=== PATIENT | female | born 1945 | race Caucasian/White ===

== ENCOUNTER 2019-11-17 12:23 | Outpatient (CLI) | payer MEDICARE, SELFPAY ==
--- NOTE | ~2019-11-17 | MM_ITS ---
EXAMINATION: MM screening aleyda BI w tasha HISTORY: Screening TECHNIQUE: Craniocaudal and mediolateral oblique 3-D tomosynthesis images were obtained and synthetic 2-D images were generated. CAD analysis was submitted and interpreted. COMPARISON: Comparison to multiple prior studies sequentially, with oldest reviewed study dated 08/04. BREAST PARENCHYMAL COMPOSITION: There are scattered areas of fibroglandular density. FINDINGS: There is no evidence of suspicious mass, calcification, or architectural distortion to sugg est malignancy in either breast. There has been no suspicious interval change. IMPRESSION: 1. No mammographic evidence of malignancy. 2. Recommend routine screening mammography in one year. BI-RADS Category 1: Negative Reviewed, dictated and finalized at location A.
== END 2019-11-17 12:24 | disposition home or self-care (01) ==
LOC: CHSIMG 12:27
DX: Z12.31 Encounter for screening mammogram for malignant neoplasm of breast (principal)
CPT/HCPCS: 77063; 77067

== ENCOUNTER 2021-01-10 12:15 | Outpatient (CLI) | payer MEDICARE, SELFPAY ==
--- NOTE | ~2021-01-10 | MM_ITS ---
EXAMINATION: MM screening aleyda BI w tasha HISTORY: Screening mammogram TECHNIQUE: Craniocaudal and mediolateral oblique 3-D tomosynthesis images were obtained and synthetic 2-D images were generated. CAD analysis was submitted and interpreted. COMPARISON: 11/17/2019, 10/31/2018, 10/28/2017 bilateral digital screening mammogram examinations BREAST PARENCHYMAL COMPOSITION: The breasts are almost entirely fatty. FINDINGS: There is no evidence of suspicious mass, calcification, or architectural distortion to sugg est malignancy in either breast. There has been no suspicious interval change. IMPRESSION: 1. No mammographic evidence of malignancy. 2. Recommend routine screening mammography in one year. BI-RADS Category 1: Negative Reviewed, dictated and finalized at location A.
== END 2021-01-10 12:16 | disposition home or self-care (01) ==
LOC: CHSIMG 12:18
PROVIDERS: PCP Family Medicine; Visit Provider Nurse Practitioner
DX: Z12.31 Encounter for screening mammogram for malignant neoplasm of breast (principal)
CPT/HCPCS: 77063; 77067

== ENCOUNTER 2021-02-02 17:01 | Emergency (ER) | payer MEDICARE, SELFPAY ==
--- NOTE | ~2021-02-02 | CT_ITS ---
EXAMINATION: CT brain wo con DATE: 02/02/2021 19:22 INDICATION: Sudden onset nausea, vomiting and dizziness TECHNIQUE: Computed tomography (CT) of the head was performed without intravenous contrast. Sagittal and coronal reconstructions were performed. The mA was adjusted according to patient size. Iterative reconstruction technique was employed. The dose-length product was 681.00 mGy-cm. COMPARISON: None FINDINGS: No acute intracranial hemorrhage, acute infarction or abnormal extra axial fluid collection. Ventricl es are normal and symmetric. No mass/mass effect. Changes of left intraocular lens replacement. The o rbits and mastoid air cells are normal. Mild mucosal thickening in the bilateral ethmoid sinuses. Int racranial calcified cerebral atherosclerosis is noted at the carotid siphons. IMPRESSION: 1. Normal brain. No acute intracranial process. Reviewed, dictated and finalized at location A. ICITY EXPERT
[2021-02-02 17:05] VITALS: BP 174/76; PULSE 97; RESP 20; TEMP 36.4; O2SAT 97
--- NOTE | 2021-02-02 17:29 | ECG_ITS ---
Measurements Intervals [place] Rate: 76 P: 40 [place]: 188 QRS: 30 QRSD: 101 T: 43 QT: 384 QTc: 432 Interpretive Statements SINUS RHYTHM BASELINE ARTIFACT- I, II, III, AVR, AVL, AVF NORMAL ECG Electronically Signed On 02-03-2021 7:32:[address] [address] Newman D.O.
[2021-02-02 17:47] LABS: Basophils Absolute Auto 0.03 K/mm3 (0.00-0.10); Basophils Percent Auto 0.5 % (0.0-1.0); Eosinophils Absolute Auto 0.04 K/mm3 (0.02-0.50); Eosinophils Percent Auto 0.7 % (1.0-6.0); Hematocrit 37.3 % (35.0-42.0); Hemoglobin 12.1 g/dL (11.7-13.8); Immature Granulocyte Absolute 0.01 K/mm3 (0.00-0.00); Immature Granulocyte Percent A 0.2 % (0.0-0.0); Lymphocytes Absolute Auto 0.94 K/mm3 (1.10-4.50); Lymphocytes Percent Auto 17.2 % (18.0-42.0); Mean Corpuscular HGB Conc 32.4 g/dL (32.0-36.0); Mean Corpuscular Hemoglobin 29.1 pg (27.0-31.0); Mean Corpuscular Volume 89.7 fL (78.0-102.0); Mean Platelet Volume 10.4 fl (9.2-11.8); Monocytes Absolute Auto 0.47 K/mm3 (0.10-0.90); Monocytes Percent Auto 8.6 % (2.0-11.0); Neutrophils Percent Auto 72.8 % (50.0-70.0); Platelet Count Result 236 K/mm3 (150-420); Red Blood Count 4.16 M/mm3 (4.20-5.40); Red Cell Distribution Width 14.5 % (11.6-14.4); White Blood Count 5.5 K/mm3 (4.8-10.8)
[2021-02-02 18:05] LABS: Alanine Aminotransferase 18 U/L (14-59); Albumin Level 3.1 g/dL (3.4-5.0); Alkaline Phosphatase 119 U/L (46-116); Anion Gap 7 mmol/L (8-16); Aspartate Amino Transferase < 10 U/L (15-37); Bilirubin,Total 0.4 mg/dL (0.00-1.00); Blood Urea Nitrogen 22 mg/dL (7-18); Calcium 8.8 mg/dL (8.5-10.1); Carbon Dioxide 28 mmol/L (21-32); Chloride 105 mmol/L (98-108); Estimated CRCL calculation 41 ml/min; Estimated Glomerular Filt Rate 43; Glucose 140 mg/dL (70-99); Osmolality Calculated 295 mOsm/kg (285-295); Potassium 4.5 mmol/L (3.5-5.1); Sodium 140 mmol/L (136-145); Total Protein 7.3 g/dL (6.4-8.2)
[2021-02-02] MEDS: MECLIZINE HCL 25 MG TABLET PO (18:19)
[2021-02-02] MEDS: SODIUM CHLORIDE 0.9% IV 500 ML 999 ML IV CONT (18:20)
[2021-02-02] MEDS: ONDANSETRON INJ 4 MG/2 ML VIAL IV PUSH (18:20)
[2021-02-02 18:23] LABS: SARS-CoV-2 RNA PCR Negative (Negative)
--- NOTE | 2021-02-02 18:27 | PC.NURSE ---
4495---pt unable to lie flat in ct scanner due to extreme dizziness. returned to exam room for medications.
[2021-02-02 18:28] VITALS: BP 161/74; PULSE 82; RESP 20; TEMP 36.7; O2SAT 99
--- NOTE | 2021-02-02 19:34 | ED.NAVMDI ---
HPI - Nausea/Vomiting/Diarrhea General Chief complaint: Nausea/Vomiting/Diarrhea Stated complaint: DIZZY Source: patient and family Mode of arrival: wheelchair History of Present Illness HPI Narrative: this is a 75-year-old female with history of diabetes and hypertension presents with nausea vomiting and vertigo started earlier today at around noon currently watery diarrhea with no headache no blurry vision no chest pain no shortness of breath no fever or chills. MD elicited complaint: nausea and vomiting Onset (ago): hour(s) Description of vomiting: watery Description of diarrhea: watery Associated nausea: Yes Associated abdominal pain: No Related Data Home Medications Medication Instructions Recorded Confirmed amlodipine 15 mg PO DAILY 02/02/21 02/02/21 aspirin [Adult Low Dose Aspirin] 81 mg PO DAILY 02/02/21 02/02/21 carvedilol 12.5 mg PO BID 02/02/21 02/02/21 glipizide 5 mg PO DAILY 02/02/21 02/02/21 hydrochlorothiazide 25 mg PO DAILY 02/02/21 02/02/21 losartan 100 mg PO DAILY 02/02/21 02/02/21 Allergies Allergy/AdvReac Type Severity Reaction Status Date / Time No Known Allergies Allergy Verified 02/02/21 17:22 Review of Systems Review of Systems: All systems reviewed & are unremarkable except as noted in HPI and below PMFSH Past Medical History Medical History Diabetes mellitus Exam Const: General: no acute distress and alert Orientation/consciousness: patient oriented x3 HENMT: Head: normal to inspection Eyes: Pupils: Equal, round and reactive pupils present EOM: EOMs intact bilaterally Direct Ophthalmoscopy: no photophobia Neck: Neck: normal visual inspection, no lymphadenopathy and no meningeal signs Chest: Chest palpation & inspection: normal inspection of the chest Resp: Effort & Inspection: normal respiratory effort Auscultation: clear to auscultation bilaterally Cardio: Rate: regular rate Rhythm: regular rhythm GI: GI Palp: Yes Soft to palpation Percussion: Yes normal to percussion : General: Yes no CVA tenderness Urinary Catheter: Urinary Catheter: patent and draining Back/Spine/Pelvis: Back: no CVA tenderness Skin: General skin exam: normal color Rashes: no rashes Neuro: General: patient oriented x3, moves all extremities, no meningeal signs and no focal motor deficits Extrem: General: normal to inspection Psych: Mental Status: mental status grossly normal Course Course Emergency Course: lab and CT scan reviewed with patient patient received meclizine and Zofran and currently is comfortable with dizziness and vertigo has improved as well as her nausea and vomiting. Vital Signs Vital signs: Vital Signs Temperature 36.4 C 02/02/21 17:05 Pulse Rate 97 02/02/21 17:05 Respiratory Rate 20 02/02/21 17:05 Blood Pressure 174/76 H 02/02/21 17:05 Pulse Oximetry 97 02/02/21 17:05 Temperature 36.7 C 02/02/21 18:28 Pulse Rate 82 02/02/21 18:28 Respiratory Rate 20 02/02/21 18:28 Blood Pressure 161/74 H 02/02/21 18:28 Pulse Oximetry 99 02/02/21 18:28 MDM - Nausea/Vomiting/Diarrhea Lab Data Result diagrams: 02/02/21 17:43 02/02/21 17:43 Labs: Lab Results 02/02/21 02/02/21 02/02/21 Range/Units 17:43 17:43 17:43 WBC 5.5 (4.8-10.8) K/mm3 RBC 4.16 L (4.20-5.40) M/mm3 Hgb 12.1 (11.7-13.8) g/dL Hct 37.3 (35.0-42.0) % MCV 89.7 (78.0-102.0) fL MCH 29.1 (27.0-31.0) pg MCHC 32.4 (32.0-36.0) g/dL RDW 14.5 H (11.6-14.4) % Plt Count 236 (150-420) K/mm3 MPV 10.4 (9.2-11.8) fl Immature Gran % (Auto) 0.2 H (0.0-0.0) % Neut % (Auto) 72.8 H (50.0-70.0) % Lymph % (Auto) 17.2 L (18.0-42.0) % [place] % (Auto) 8.6 (2.0-11.0) % Eos % (Auto) 0.7 L (1.0-6.0) % Baso % (Auto) 0.5 (0.0-1.0) % Lymph # (Auto) 0.94 L (1.10-4.50) K/mm3 [place] # (Auto) 0.47 (0.10-0.90) K/mm3 Eos # (Aut
--- NOTE | 2021-02-02 19:38 | PC.NURSE ---
pT RETURNED FROM ct AT THIS TIME. pT REEVALED BY ermd. ermd AT THE BEDSIDE DISCUSSING ORDERS FOR d/c WITH pT. urine sample reqused from Pt. Pt. hystrionic and difficult to communicate with, denied ability at this time to provide sample. ERMD aware. Urine sample dismissed by ERMD. D/C orders continued.
[2021-02-02 19:46] VITALS: BP 162/71; PULSE 81; RESP 20; TEMP 36.7; O2SAT 99
--- NOTE | 2021-02-02 20:06 | PC.NURSE ---
#20 Gauge IV Lt F/A removed intact 0 bleeding and preasure dresing placed.
== END 2021-02-02 20:11 | disposition home or self-care (01) ==
PROVIDERS: Emergency Provider Emergency Medicine
DX: B34.9 Viral infection, unspecified (principal); R11.2 Nausea with vomiting, unspecified; E11.9 Type 2 diabetes mellitus without complications; Z20.822 Contact with and (suspected) exposure to COVID-19
CPT/HCPCS: 36415; 70450; 80053; 85025; 93005; 96361; 96374; 99283; 99284; A9270; C9803; J2405; J7040; U0003; U0005

== ENCOUNTER 2022-01-23 11:43 | Outpatient (CLI) | payer MEDICARE, SELFPAY ==
--- NOTE | ~2022-01-23 | MM_ITS ---
EXAMINATION: MM screening aleyda BI w tasha HISTORY: Screening mammogram TECHNIQUE: Craniocaudal and mediolateral oblique 3-D tomosynthesis images were obtained and synthetic 2-D images were generated. CAD analysis was submitted and interpreted. COMPARISON: 01/10/2021, 11/17/2019, 10/31/2018 bilateral screening mammogram examinations BREAST PARENCHYMAL COMPOSITION: The breasts are almost entirely fatty. FINDINGS: There is no evidence of suspicious mass, calcification, or architectural distortion to sugg est malignancy in either breast. There has been no suspicious interval change. IMPRESSION: 1. No mammographic evidence of malignancy. 2. Recommend routine screening mammography in one year. BI-RADS Category 1: Negative Reviewed, dictated and finalized at location A. 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
== END 2022-01-23 11:44 | disposition home or self-care (01) ==
LOC: CHSIMG 11:45
PROVIDERS: PCP Family Medicine; Visit Provider Family Medicine
DX: Z12.31 Encounter for screening mammogram for malignant neoplasm of breast (principal)
CPT/HCPCS: 77063; 77067

== ENCOUNTER 2024-12-18 16:14 | Outpatient (CLI) | payer MEDICARE, SELFPAY ==
--- NOTE | ~2024-12-18 | XR_ITS ---
XR lumbar spine 2-3V Indication: right-sided low back pain without sciata Comparison: None Findings: Moderate loss of vertebral height throughout. No fracture identified. Grade 1 anterolisthesis of L4 on L5. Moderate loss of disc height throughout. Soft tissues unremarkable Impression: No acute abnormality. Reviewed, dictated and finalized at location P. Impression: No acute abnormality.
--- NOTE | ~2024-12-18 | XR_ITS ---
EXAMINATION: XR hip RT min 2V, 12/18/2024 16:30 CDT HISTORY: right-sided low back pain without sciata COMPARISON: No comparisons available. Findings: No acute fracture or malalignment. No significant degenerative changes. Soft tissues unremarkable. Impression: No acute fracture or malalignment. Reviewed, dictated and finalized at location P. Impression: No acute fracture or malalignment.
--- OUTSIDE RECORDS SUMMARY | 2024-12-18 16:21 | XMS_ITS | Clinical Summary ---
Author Organization [facility] Address [address] [place] [address] Care Team Providers Care Communications Technician Name Role Phone Benson Downs Candace HOWARD Primary Care Provider [phone] Allergies Active Allergy Reactions Criticality Noted Date Comments Glimepiride Itching Low 02/17/2020 Reaction: Itching, Shellfish Allergy Unknown 02/17/2020 Medications losartan 100 MG tablet Take 1 tablet (100 mg total) by mouth daily. Active carvedilol 12.5 MG tablet Take 1 tablet (12.5 mg total) by mouth 2 (two) times daily. Active amLODIPine 10 MG tablet Take 0.5 tablets (5 mg total) by mouth daily. Active hydroCHLOROthiazide 25 MG tablet Take 1 tablet (25 mg total) by mouth every morning. Active aspirin 81 MG chewable tablet Chew 1 tablet (81 mg total) by mouth daily. Active dulaglutide (TRULICITY) 0.75 MG/0.5ML injection Inject 0.75 mg into the skin once a week. Active ondansetron (ZOFRAN-ODT) 4 MG disintegrating tabletIndications:C OVID-19 virus infection Take 1 tablet (4 mg total) by mouth every 8 (eight) hours as needed for Nausea. 12 tablet Active glipiZIDE XL 10 MG 24 hr tablet Take 1 tablet (10 mg total) by mouth daily with breakfast. Do not break or crush tablet Active Active Problems Problem Noted Date Diagnosed Date MAR (acute kidney injury) 09/19/2023 Elevated liver enzymes 07/20/2020 Acute kidney injury 02/19/2020 COVID-19 02/17/2020 Obesity (BMI 30-39.9) 09/16/2016 Benign essential hypertension 08/01/2013 Overview (02/17/2020): Benign essential HTN Controlled type [address] hyperglycemia ([facility]) 08/01/2013 Overview (02/17/2020): Diabetes mellitus DM2 (diabetes mellitus, type 2) ([facility] ) Hypertension Resolved Problems Problem Noted Date Diagnosed Date Resolved Date Epigastric pain 07/20/2020 07/21/2020 Chest pain 07/19/2020 07/21/2020 Bacteremia due to Gram-negative bacteria 05/05/2020 05/09/2020 Respiratory failure with hyp oxia ([facility]) 02/19/2020 02/19/2020 Family History Medical History Relation Comments Heart Disease Father Relation Status Comments Father Alive Mother old age Social History Tobacco Use Types Packs/Day Years Used Date Smoking Tobacco: Former Cigarettes 0.3 37 0 05/04/1965 - 05/04/2002 Smokeless Tobacco: Never Alcohol Use Standard Drinks/Week Comments Not Currently 0 (1 standard drink = 0.6 oz pur e alcohol) [facility] Utilities Answer Date Recorded In the past 12 months has e electric, gas, oil, or water [employer] threatened to shut off services in your home? No 09/19/2023 Humiliation, Afraid, Rape, and Kick questionnair e Answer Date Recorded Within the last year, have y ou been afraid of your partner or ex-partner? No 09/19/2023 Within the last year, have y ou been humiliated or emotionally abused in other ways by your partner or ex-partner? No Within the last year, have y ou been kicked, hit, slapped, or otherwise physically hurt by your partner or ex-partner? No 09/19/2023 Within the last year, have y ou been raped or forced to have any kind of sexual activity by your partner or ex-partner? No 09/19/2023 Overall Financial Resource Strain (CARDIA) Answe r Date Recorded How hard is it for you to pa y for the very basics like food, housing, medical care, and heating? Not hard at all 09/19/2023 [facility] - Occupational Stress Questionnaire Answer Date Recorded Do you feel stress - tense, restless, nervous, or anxious, or unable to sleep at night because your mind is troubled all the time - these days? Not at all 02/17/2020 Exercise Vital Sign Answer Date Recorde d On average, how many days pe r week do you engage in moderate to strenuous exercise (like a brisk walk)? Patient declined On average, how many minutes do you engage in exercise at this level? Patient declined 02/17/2020 Hunger Vital Sign Answer Date Recorded Within the past 12 months, y ou worried that your food would run out before you got the money to buy more. Never true 09/19/19 24 Within the past 12 months, t he food you bought just didn't last and you didn't have money to get more. Never true 09/19/2023 PRAPARE - Transportation Answer Date Re corded In the past 12 months, has l ack of transportation kept you from medical appointments or from getting medications? No 06/2023 In the past 12 months, has l ack of transportation kept you from meetings, work, or from getting things needed for daily living? No 09/19/2023 Housing Stability Vital Sign Answer Inocente e Recorded In the last 12 months, was t here a time when you were not able to pay the mortgage or rent on time? No 09/19/2023 In the past 12 months, how m any times have you moved where you were living? 1 09/19/2023 At any time in the past 12 m [facility], were you homeless or living in a chcf (including now)? No 09/19/2023 Comments No Sex and Gender Information Value Date Recorded Sex Assigned at Not on file Legal Sex Female 2:30 PM CDT Gender Identity Not on file Sexual Orientation Not on file Last Filed Vital Signs Vital Sign Reading Time Taken Comments Blood Pressure 122/51 09/22/2023 6:20 AM CDT Pulse 73 09/22/2023 6:20 AM CDT Temperature 36.3 C (97.3 F) 09/22/2023 6:20 AM CDT Respiratory Rate 18 09/22/2023 6:20 AM CDT Oxygen Saturation 94% 09/22/2023 6:20 AM CDT Inhaled Oxygen Concentration - - Weight 103.3 kg (227 lb 12.8 oz) 2023 10:16 PM CDT Height 165.1 cm (5' 5) 09/19/2023 6:45 PM CDT Body Mass Index 37.91 09/19/2023 6:45 PM CDT Plan of Treatment Health Maintenance Due Date Last Done Comments Kidney Health Evaluation 1945 Diabetes: Retinopathy Eye Exam 06/08/1965 Pneumococcal Vaccine: 50+ Years (1 of 2 - PCV) 06/08/1966 Zoster Vaccines (1 of 2) 06/08/1997 DTaP, Tdap and Td Vaccines ( 1 - Tdap) 08/16/2005 08/15/2005 Annual Medicare Wellness Visit 06/08/2012 Hemoglobin A1C 11/03/2020 05/06/2020, 02/19/2020 Lipid Panel 07/21/2021 07/21/2020 RSV Immunization or 60+ Years (1 - 1-dose 75+ series) 06/08/2022 COVID-19 Vaccine ( - 2023-2 5 season) 2024 Hepatitis C Completed 07/19/2020 Dexa Scan (General) Completed 01/31/2023 Meningococcal B Vaccine Aged Out No l onger eligible based on patient's age to complete this topic Meningococcal Vaccine Aged Out No dayan butch eligible based on patient's age to complete this topic RSV Immunizations Under 20 Months Aged Out No longer eligible b ased on patient's age to complete this topic Procedures Procedure Name Priority Date/Time Associated Diagnosis Comments BONE DENSITY/DEXA Routine 01/31/2023 9:5 5 AM FORMATION TESTING OPERATOR Post-menopausal LIPID PANEL Routine 07/21/2020 6:38 AM CDT HEPATITIS PANEL,ACUTE STAT 07/19/2020 8:12 PM CDT HEMOGLOBIN, GLYCOSYLATED Routine 05/06/2020 5:20 AM FORMATION TESTING OPERATOR from Last 3 Months or Most Recently Relevant to Health Maintenance Results * BONE DENSITY/DEXA (01/31/2023 9:55 AM FORMATION TESTING OPERATOR) Anatomical Region Laterality Modality Bone Bone Density 01/31/2023 10:1 0 AM FORMATION TESTING OPERATOR Impressions 01/31/2023 10:19 AM FORMATION TESTING OPERATOR Impression: 1. Within normal limits in the lumbar spine. 2. Consistent with osteopenia in both hips. Ordered By: BENSON DOWNS Interpreted By: Lucas Barcenas MD, 01/31/2023 10:10 AM Narrative 01/31/2023 10:19 AM FORMATION TESTING OPERATOR Examination: DEXA Bone densitometry Clinical history: Postmenopausal. Osteoporosis screening. Comparison: None. Technique: DEXA bone mineral density evaluation was performed in the AP projection over the lumbar spine and over both hips in the AP projection utilizing standard imaging techniques. Assessment: The BMD measured at the AP spine L1-L4 is 1.023 g/cm2 with a T-score of -0.2 and a Z-score of 2.2. Bone density is up to 10% below young normal. This patient is considered normal according to the World Health Organization (WHO) criteria. Fracture risk is low. The BMD measured at the femoral neck left is 0.639 g/cm2 with a T-score of -1.9 and a Z-score of 0.2. The patient is considered osteopenic according to World Health Organization (WHO) criteria. Bone density is between 10 and 25% below young normal. Fracture risk is moderate. Treatment is advised. The BMD measured at the femoral neck right is 0.729 g/cm2 with a T-score of -1.1 and a Z-score of 1.0. The patient is considered osteopenic according to World Health Organization (WHO) criteria. Bone density is between 10 and 25% below young normal. Fracture risk is moderate. Treatment is advised. FRAX 10-year fracture risk: Major Osteoporotic Fracture: 12%. Hip Fracture: 2.6%. Recommendations: All patients should ensure an adequate intake of dietary calcium and vitamin D. The NOF recommend adults under the age of 50 need 1000 mg of calcium and 400-800 IU of vitamin D daily. Effective therapy for the prevention and treatment of osteoporosis include biphosphonates. Follow-up: People with diagnosed cases of osteoporosis or at high risk for fracture should have regular bone mineral density test. For patients eligible for Medicare, routine testing is allowed once every 2 years. Testing frequency can be increased to one year for patients who have rapidly progressing disease, those who are receiving or discontinuing medical therapy to restore bone mass, or have additional risk factors. Based on these results, a followup exam is recommended in two years. Procedure Note Lucas Barcenas MD - 01/31/2023 Examination: DEXA Bone densitometry Clinical history: Postmenopausal. Osteoporosis screening. Comparison: None. Technique: DEXA bone mineral density evaluation was performed in the APprojection over the lumbar spine and over both hips in the AP projectionutilizing standard imaging techniques. Assessment: The BMD measured at the AP spine L1-L4 is 1.023 g/cm2 with a T-score of-0.2 and a Z-score of 2.2. Bone density is up to 10% below youngnormal. This patient is considered normal according to the World HealthOrganization (WHO) criteria. Fracture risk is low. The BMD measured at the femoral neck left is 0.639 g/cm2 with a T-score of-1.9 and a Z-score of 0.2. The patient is considered osteopenicaccording to World Health Organization (WHO) criteria. Bone density isbetween 10 and 25% below young normal. Fracture risk is moderate.Treatment is advised. The BMD measured at the femoral neck right is 0.729 g/cm2 with a T-scoreof -1.1 and a Z-score of 1.0. The patient is considered osteopenicaccording to World Health Organization (WHO) criteria. Bone density isbetween 10 and 25% below young normal. Fracture risk is moderate.Treatment is advised. FRAX 10-year fracture risk: Major Osteoporotic Fracture: 12%. Hip Fracture: 2.6%. Recommendations: All patients should ensure an adequate intake of dietary calcium andvitamin D. The NOF recommend adults under the age of 50 need 1000 mg ofcalcium and 400-800 IU of vitamin D daily. Effective therapy for theprevention and treatment of osteoporosis include biphosphonates. Follow-up: People with diagnosed cases of osteoporosis or at high risk for fractureshould have regular bone mineral density test. [facility], routine testing is allowed once every 2 years. Testing frequencycan be increased to one year for patients who have rapidly progressingdisease, those who are receiving or discontinuing medical therapy torestore bone mass, or have additional risk factors. Based on these results, a followup exam is recommended in two years. Impression: 1. Within normal limits in the lumbar spine. 2. Consistent with osteopenia in both hips. Ordered By: BENSON DOWNS Interpreted By: Lucas Barcenas MD, 01/31/2023 10:10 AM us Benson Downs APNP DEXA Final Resu lt * (ABNORMAL) LIPID PANEL (07/21/2020 6:38 AM CDT) CHOLESTEROL 184 <200 MG/DL 07/21/2020 8:45 AM CDT [facility] Comment: THE NATIONAL LIPID ASSOCIATION AND THE NATIONAL CHOLESTEROL EDUCATION PROGRAM (NCEP) HAVE SET THE FOLLOWING GUIDELINES FOR TOTAL CHOLESTEROL IN ADULTS AGES 18 AND UP. DESIRABLE: <200 BORDERLINE HIGH: 200-239 HIGH: > OR = 240 TRIGLYCERIDES 61 <150 MG/DL 07/21/2020 8:45 AM CDT [facility] Comment: THE NATIONAL LIPID ASSOCIATION AND THE NATIONAL CHOLESTEROL EDUCATION PROGAM (NCEP) HAVE SET THE FOLLOWING GUIDELINES FOR TRIGLYCERIDES IN ADULTS AGES 18 AND UP. NORMAL: <150 BORDERLINE HIGH: 150 TO 199 HIGH: 200 TO 499 VERY HIGH: >499 HDL 62 >49 MG/DL 07/21/2020 8:45 AM CDT [facility] Comment: THE NATIONAL LIPID ASSOCIATION AND THE NATIONAL CHOLESTEROL EDUCATION PROGAM (NCEP) HAVE SET THE FOLLOWING GUIDELINES FOR HDL CHOLESTEROL IN ADULTS AGES 18 AND UP. MALES: >39 FEMALES: >49 LDL (CALCULATED) 110(H) <100 MG/DL 07/22/19 8:45 AM CDT [facility] Comment: THE NATIONAL LIPID ASSOCIATION AND THE NATIONAL CHOLESTEROL EDUCATION PROGAM (NCEP) HAVE SET THE FOLLOWING GUIDELINES FOR LDL CHOLESTEROL IN ADULTS AGES 18 AND UP. DESIRABLE: <100 ABOVE DESIRABLE: 100 TO 129 BORDERLINE HIGH: 130 TO 159 HIGH: 160 TO 189 VERY HIGH: >189 VLDL CALCULATION 12 MG/DL 07/22/19 8:45 AM CDT [facility] Comment:REFERENCE RANGE NOT ESTABLISHED CHOL/HDL RATIO 3.0 07/21/2020 8:45 AM CDT [facility] Comment:REFERENCE RANGE NOT ESTABLISHED LDL/HDL 1.8 07/21/2020 8:45 AM CDT [facility] Comment:REFERENCE RANGE NOT ESTABLISHED NON HDL CHOLESTEROL 122 MG/DL 07/21/2020 8:45 AM CDT [facility] Comment:REFERENCE RANGE NOT ESTABLISHED 07/21/2020 6:38 AM CDT Mariama Jones [facility] Final Res ult [facility] [address] [place] [address], * HEPATITIS PANEL,ACUTE (07/19/2020 8:12 PM CDT) HEPATITIS B SURFACE AG NON-REACT SHANKAR NON-REACT SHANKAR 07/20/2020 8:04 PM CDT [facility] Comment:HBsAg NOT DETECTED. HEP B CORE IGM NON-REACT SHANKAR NON-REACT SHANKAR 07/20/2020 8:04 PM CDT [facility] Comment: IgM ANTI HBc NOT DETECTED. DOES NOT EXCLUDE THE POSSIBILITY OF EXPOSURE TO OR INFECTION WITH HBV. NO RETEST REQUIRED. HIGH DOSES OF BIOTIN MAY INTERFERE WITH THIS TEST RESULT. CORRELATION TO CLINICAL HISTORY AND PRESENTATION RECOMMENDED. HAV IGM NON-REACT SHANKAR NON-REACT SHANKAR 07/20/2020 8:04 PM CDT [facility] Comment: IgM ANTI HAV NOT DETECTED. DOES NOT EXCLUDE THE POSSIBILITY OF EXPOSURE TO OR INFECTION WITH HAV. LEVELS OF IgM ANTI HAV MAY BE BELOW THE CUTOFF IN EARLY INFECTION. HEPATITIS C AB NON-REACT SHANKAR NON-REACT SHANKAR 07/20/2020 8:04 PM CDT [facility] Comment: ANTIBODIES TO HCV NOT DETECTED. DOES NOT EXCLUDE THE POSSIBILITY OF EXPOSURE TO HCV. 07/19/2020 8:12 PM CDT Eduardo San MD LABORATORY Final Resul t [facility] [address] [place] [address], [place] [phone] [id number] * (ABNORMAL) HEMOGLOBIN, GLYCATED (05/06/2020 5:20 AM FORMATION TESTING OPERATOR) HGB A1C 7.1(H) <5.7 % 05/06/2020 10:01 AM FORMATION TESTING OPERATOR [facility] Comment: 5.7 TO 6.4% INCREASED RISK OF DIABETES > OR = 6.5% CONSISTENT WITH DIABETES PER ADA GUIDELINES ESTIMATED AVG GLUCOSE 157(H) 70 - 140 MG/DL 05/06/2020 10:01 AM FORMATION TESTING OPERATOR [facility] 05/06/2020 5:20 AM FORMATION TESTING OPERATOR Eduardo HOWARD LABORATORY Final Result [facility] [address] [place] [address], [place] [phone] from Last 3 Months or Most Recently Relevant to Health Maintenance Insurance [facility] MEDICARE [facility] MEDICARE Advance Directives * Full Code (Latest Code Status on File) Date Activated Date Inactivated Comments 09/19/2023 11:38 PM 09/22/2023 1:46 PM * Full Code Date Activated Date Inactivated Comments 07/19/2020 9:58 PM 07/21/2020 4:07 PM * Full Code Date Activated Date Inactivated Comments 05/06/2020 9:32 AM 05/09/2020 1:05 PM * Full Code Date Activated Date Inactivated Comments 05/05/2020 10:10 PM 05/06/2020 9:32 AM * Full Code Date Activated Date Inactivated Comments 02/17/2020 7:59 PM 02/22/2020 2:05 PM Care Teams Communications Technician Relationship Specialty Start Date End Date Benson Downs APNP [address] [address] DIDIER Gamble [address] PCP - General Nurse Practitioner Family 01/31/23
--- OUTSIDE RECORDS SUMMARY | 2024-12-18 16:21 | XMS_ITS | Encounter Summary ---
Author Organization [facility] Address [address] [place] [address] Phone Care Team Providers Care Servicing Rep Name Role Phone Katie Mendieta MD Primary Care Provider [phone] Galdino Gilmore MD Unavailable [phone] Isidro Murillo MD Unavailable Encounter Details Date Type Department Care Team (Late st Contact Info) Description 04/12/2017 Orders Only [facility] [address] [place] [address] Katie Mendieta MD [address] [place], [place] [id number] Social History Tobacco Use Types Packs/Day Years Used Date Smoking Tobacco: Former Smokeless Tobacco: Never Alcohol Use Standard Drinks/Week Comments No 0 (1 standard drink = 0.6 oz pur e alcohol) Comments No Sex and Gender Information Value Date Recorded Sex Assigned at Not on file Legal Sex Female 4:34 PM ICT DEVELOPER Gender Identity Not on file Sexual Orientation Not on file documented as of this encounter Plan of Treatment Not on file documented as of this encounter Procedures Procedure Name Priority Date/Time Associated Diagnosis Comments SCAN - RADIOLOGY/IMAGING 04/12/2017 2:23 PM ICT DEVELOPER documented in this encounter Results * SCAN - RADIOLOGY/IMAGING (04/12/2017 2:23 PM ICT DEVELOPER) Anatomical Region Laterality Modality Other us Katie Mendieta MD Final Resu lt documented in this encounter Visit Diagnoses Not on filedocumented in this encounter Care Teams Servicing Rep Relationship Specialty Start Date End Date Katie Mendieta MD PCP - General 06/15/16 Galdino Gilmore MD Ophthalmology 11/02/16 Isidro Murillo MD [address] [place] [address] Orthopedic Surgery 11/02/16 documented as of this encounter
--- OUTSIDE RECORDS SUMMARY | 2024-12-18 16:21 | XMS_ITS | Clinical Summary ---
Author Organization [facility] [address] Address [address] [place] [address] Phone Care Team Providers Care Dishcloth Folder Name Role Phone Katie Mendieta MD Primary Care Provider [phone]- [phone] Galidno Gilmore MD Unavailable [phone] Isidro Murillo MD Unavailable [phone] Allergies Active Allergy Reactions Criticality Noted Date Comments Cantaloupe Unknown 01/01/2017 Egg Glimepiride Itching Low Reaction: Itching, Milk [place] Juice Shellfish Containing Products Shellfish Derived Wheat Medications aspirin (ASPIR-81) 81 mg tablet take 1 tablet (81MG) by oral route every day 0 10/26/2010 Active metFORMIN XR (GLUCOPHAGE XR) 500 mg 24 hr tabletIndicatio ns:Type 2 diabetes mellitus with microalbuminuri a, without long-term current use of insulin (HCC) Take 4 tablets (2,000 mg total) by mouth daily with breakfast. 360 tablet 1 11/02/2016 Active polyethylene glycol (MIRALAX) 17 gram/dose powderIndicatio ns:Constipation due to slow transit Take 17 g by mouth daily. 510 g 11 01/19/2017 Active Active Problems Problem Noted Date Diagnosed Date Arthritis 11/02/2016 Constipation due to slow transit 11/02/2016 Obesity (BMI 30-39.9) 09/16/2016 Diabetes mellitus 08/01/2013 Overview (06/20/2016): Diabetes mellitus Benign essential hypertension 08/01/2013 Overview (06/21/2016): Benign essential HTN Multiple-type hyperlipidemia 08/01/2013 Overview (06/22/2016): Hyperlipidemia Resolved Problems Problem Noted Date Diagnosed Date Resolved Date Pain of hand 06/06/2015 11/02/2016 Overview (06/22/2016): Hand pain Pain of foot 06/06/2015 11/02/2016 Overview (06/22/2016): Foot pain Knee pain 10/29/2014 11/02/2016 Overview (06/22/2016): Knee pain Former smoker 10/29/2014 11/02/2016 Overview (06/22/2016): Ex smoker Vitamin D deficiency 08/01/2013 017 Overview (06/23/2016): Vitamin D deficiency Immunizations Immunization Administration Dates Next Due TD Preservative Free 08/15/2005 Medical History Medical History Date Comments Hx Other Medical Cholecystectomy August 2012.; Comments: [facility] 11/01/2014 - Hx Other Medical Right knee A&A 9-1-15.; Comments: [facility] 11/24/2014 - Hx Other Medical Left knee A&A 1 0-6-15; Comments: [facility] 01/03/2015 - Hx Other Medical Right hand, tiffanie t and wrist fx. 2-8-16.; Comments: [facility] 07/06/2015 - Family History Medical History Relation Name Comments Heart attack Father 2 Myocardial infa rction; Cause of : Myocardial infarction Hyperlipidemia Father 2 Hyperlipidemi a; Other Mother 2 Alive and well; Relation Name Status Comments Father 1 (Age 65) Father 2 Mother 1 Alive Mother 2 Social History Tobacco Use Types Packs/Day Years Used Date Smoking Tobacco: Former Smokeless Tobacco: Never Tobacco Cessation:Counseling Given: Yes Alcohol Use Standard Drinks/Week Comments No 0 (1 standard drink = 0.6 oz pur e alcohol) Comments No Sex and Gender Information Value Date Recorded Sex Assigned at Not on file Legal Sex Female 4:34 PM SPUDDER Gender Identity Not on file Sexual Orientation Not on file Obstetrics History Last Filed Vital Signs Vital Sign Reading Time Taken Comments Blood Pressure 140/80 01/01/2017 1:06 PM CDT Pulse 68 01/01/2017 1:06 PM CDT Temperature 36.3 C (97.3 F) 01/01/2017 1:06 PM CDT Respiratory Rate 18 01/01/2017 1:06 PM CDT Oxygen Saturation 98% 11/02/2016 12:21 PM CDT Inhaled Oxygen Concentration - - Weight 100.2 kg (221 lb) 01/01/2017 1:06 PM CDT Height 165.1 cm (5' 5) 11/02/2016 12:21 PM CDT Body Mass Index 36.78 11/02/2016 12:21 PM CDT Plan of Treatment Not on file Insurance MEDICARE Care Teams Dishcloth Folder Relationship Specialty Start Date End Date Katie Mendieta MD PCP - General 06/15/16 Galdino Gilmore MD Ophthalmology 11/02/16 Isidro Murillo MD [address] [address] Orthopedic Surgery 11/02/16
--- OUTSIDE RECORDS SUMMARY | 2024-12-18 16:21 | XMS_ITS | Encounter Summary ---
Author Organization [facility] Address [address] [address] Phone Care Team Providers Care Ecommerce Merchandising Manager Name Role Phone Katie Mendieta MD Primary Care Provider [phone] Galdino Gilmore MD Unavailable [phone] Isidro Murillo MD Unavailable Encounter Details Date Type Department Care Team (Late st Contact Info) Description 04/12/2017 Orders Only [facility] [address] [place] [address] Katie Mendieta MD [address] [place], [place] [id number] Social History Tobacco Use Types Packs/Day Years Used Date Smoking Tobacco: Former Smokeless Tobacco: Never Alcohol Use Standard Drinks/Week Comments No 0 (1 standard drink = 0.6 oz pur e alcohol) Comments No Sex and Gender Information Value Date Recorded Sex Assigned at Not on file Legal Sex Female 4:34 PM PREPAROLE COUNSELING AIDE Gender Identity Not on file Sexual Orientation Not on file documented as of this encounter Plan of Treatment Not on file documented as of this encounter Procedures Procedure Name Priority Date/Time Associated Diagnosis Comments SCAN - LABS 04/12/2017 2:23 PM PREPAROLE COUNSELING AIDE documented in this encounter Results * SCAN - LABS (04/12/2017 2:23 PM PREPAROLE COUNSELING AIDE) us Katie Mendieta MD Final Resu lt documented in this encounter Visit Diagnoses Not on filedocumented in this encounter Care Teams Ecommerce Merchandising Manager Relationship Specialty Start Date End Date Katie Mendieta MD PCP - General 06/15/16 Galdino Gilmore MD Ophthalmology 11/02/16 Isidro Murillo MD [address] [place] [address] Orthopedic Surgery 11/02/16 documented as of this encounter
--- OUTSIDE RECORDS SUMMARY | 2024-12-18 16:21 | XMS_ITS | Encounter Summary ---
Author Organization [facility] Address [address] [place] [address] Phone Care Team Providers Care Buckle Sewer Name Role Phone Katie Mendieta MD Primary Care Provider [phone]- [phone] Galdino Gilmore MD Unavailable [phone] Isidro Murillo MD Unavailable Encounter Details Date Type Department Care Team (Late st Contact Info) Description 04/15/2017 Orders Only [facility] [address] [place] [address] Katie Mendieta MD [address] [place], [place] [id number] Social History Tobacco Use Types Packs/Day Years Used Date Smoking Tobacco: Former Smokeless Tobacco: Never Alcohol Use Standard Drinks/Week Comments No 0 (1 standard drink = 0.6 oz pur e alcohol) Comments No Sex and Gender Information Value Date Recorded Sex Assigned at Not on file Legal Sex Female 4:34 PM SENIOR MECHANICAL DEVELOPMENT ENGINEER Gender Identity Not on file Sexual Orientation Not on file documented as of this encounter Plan of Treatment Not on file documented as of this encounter Procedures Procedure Name Priority Date/Time Associated Diagnosis Comments SCAN - LABS 04/15/2017 8:20 AM SENIOR MECHANICAL DEVELOPMENT ENGINEER documented in this encounter Results * SCAN - LABS (04/15/2017 8:20 AM SENIOR MECHANICAL DEVELOPMENT ENGINEER) us Katie Mendieta MD Final Resu lt documented in this encounter Visit Diagnoses Not on filedocumented in this encounter Care Teams Buckle Sewer Relationship Specialty Start Date End Date Katie Mendieta MD PCP - General 06/15/16 Galdino Gilmore MD Ophthalmology 11/02/16 Isidro Murillo MD [address] [place] [address] Orthopedic Surgery 11/02/16 documented as of this encounter
--- OUTSIDE RECORDS SUMMARY | 2024-12-18 16:21 | XMS_ITS | Encounter Summary ---
Author Organization [facility] Address [address] [place] [address] Phone Care Team Providers Care Tool Radial Drill Press Set Up Operator Name Role Phone Katie Mendieta MD Primary Care Provider [phone]- [phone] Galdino Gilmore MD Unavailable [phone] Isidro Murillo MD Unavailable Encounter Details Date Type Department Care Team (Late st Contact Info) Description 04/19/2017 Orders Only [facility] [address] [place] [address] Katie Mendieta MD [address] [place], [place] [id number] Social History Tobacco Use Types Packs/Day Years Used Date Smoking Tobacco: Former Smokeless Tobacco: Never Alcohol Use Standard Drinks/Week Comments No 0 (1 standard drink = 0.6 oz pur e alcohol) Comments No Sex and Gender Information Value Date Recorded Sex Assigned at Not on file Legal Sex Female 4:34 PM HOSPITAL NURSE LIAISON Gender Identity Not on file Sexual Orientation Not on file documented as of this encounter Plan of Treatment Not on file documented as of this encounter Procedures Procedure Name Priority Date/Time Associated Diagnosis Comments SCAN - LABS 04/19/2017 8:16 AM HOSPITAL NURSE LIAISON documented in this encounter Results * SCAN - LABS (04/19/2017 8:16 AM HOSPITAL NURSE LIAISON) us Katie Mendieta MD Final Resu lt documented in this encounter Visit Diagnoses Not on filedocumented in this encounter Care Teams Tool Radial Drill Press Set Up Operator Relationship Specialty Start Date End Date Katie Mendieta MD PCP - General 06/15/16 Galdino Gilmore MD Ophthalmology 11/02/16 Isidro Murillo MD [address] [place] [address] Orthopedic Surgery 11/02/16 documented as of this encounter
--- OUTSIDE RECORDS SUMMARY | 2024-12-18 16:21 | XMS_ITS | Encounter Summary ---
Author Organization [facility] Address [address] [place] [address] Phone Care Team Providers Care Iron Carrier Name Role Phone Katie Mendieta MD Primary Care Provider [phone]- [phone] Galdino Gilmore MD Unavailable [phone] Isidro Murillo MD Unavailable Encounter Details Date Type Department Care Team (Late st Contact Info) Description 04/15/2017 Orders Only [facility] [address] [place] [address] Katie Mendieta MD [address] [place], [place] [id number] Social History Tobacco Use Types Packs/Day Years Used Date Smoking Tobacco: Former Smokeless Tobacco: Never Alcohol Use Standard Drinks/Week Comments No 0 (1 standard drink = 0.6 oz pur e alcohol) Comments No Sex and Gender Information Value Date Recorded Sex Assigned at Not on file Legal Sex Female 4:[address] SECURITY OFFICER Gender Identity Not on file Sexual Orientation Not on file documented as of this encounter Plan of Treatment Not on file documented as of this encounter Procedures Procedure Name Priority Date/Time Associated Diagnosis Comments SCAN - LABS 04/15/2017 11:[address] SECURITY OFFICER documented in this encounter Results * SCAN - LABS (04/15/2017 11:[address] SECURITY OFFICER) us Katie Mendieta MD Final Resu lt documented in this encounter Visit Diagnoses Not on filedocumented in this encounter Care Teams Iron Carrier Relationship Specialty Start Date End Date Katie Mendieta MD PCP - General 06/15/16 Galdino Gilmore MD Ophthalmology 11/02/16 Isidro Murillo MD [address] [place] [address] Orthopedic Surgery 11/02/16 documented as of this encounter
--- OUTSIDE RECORDS SUMMARY | 2024-12-18 16:21 | XMS_ITS | Encounter Summary ---
Author Organization [facility] Address [address] [place] [address] Phone Care Team Providers Care Plastic Molder Name Role Phone Katie Mendieta MD Primary Care Provider [phone] Galdino Gilmore MD Unavailable [phone] Isidro Murillo MD Unavailable Encounter Details Date Type Department Care Team (Late st Contact Info) Description 10/18/2016 Orders Only [facility] [address] [place] [address] Katie Mendieta MD [address] [place] [address] Diabetic glomerulopathy (HCC) (Primary Dx); Routine general medical examination at a health care facility Social History Tobacco Use Types Packs/Day Years Used Date Smoking Tobacco: Never Assessed Comments Unknown Sex and Gender Information Value Date Recorded Sex Assigned at Not on file Legal Sex Female 4:34 PM EXTERMINATION INSPECTOR Gender Identity Not on file Sexual Orientation Not on file documented as of this encounter Plan of Treatment Scheduled Orders Name Type Priority Associated Diagnoses Orde r Schedule Comprehensive metabolic panel Lab Routine Diabetic glomerulopathy (HCC) 1 Occurrences starting 10/18/2016 until 10/18/2017 Hemoglobin A1c Lab Routine Diabetic glomerulopathy (HCC) 1 Occurrences starting 10/18/2016 until 10/18/2017 Microalbumin / creatinine ratio, urine, random Lab Routine Diabetic glomerulopathy (HCC) Expected: 11/06/2016, Expires: 10/18/2017 Cholesterol, LDL, direct Lab Routine Diabetic glomerulopathy (HCC) Expected: 11/06/2016, Expires: 10/18/2017 Hepatitis C antibody Lab Routine Routine general medical examination at a health care facility Expected: 10/18/2016, Expires: 10/18/2017 documented as of this encounter Visit Diagnoses Diagnosis Diabetic glomerulopathy (HCC)- Primary Type II or unspecified type diabetes mellitus with renal manifestations, not stated as uncontrolled Routine general medical examination at a health care facility documented in this encounter Care Teams Plastic Molder Relationship Specialty Start Date End Date Katie Mendieta MD PCP - General 06/15/16 Galdino Gilmore MD Ophthalmology 11/02/16 Isidro Murillo MD [address] [place] [address] Orthopedic Surgery 11/02/16 documented as of this encounter
== END 2024-12-18 16:15 | disposition home or self-care (01) ==
LOC: CHSIMG 16:18
DX: M54.50 Low back pain, unspecified (principal)
CPT/HCPCS: 72100; 73502

== ENCOUNTER 2025-01-25 13:55 | Outpatient (CLI) | payer MEDICARE, SELFPAY ==
--- OUTSIDE RECORDS SUMMARY | 2000-09-26 04:45 | XMS_ITS | Continuity of Care Document ---
Author Organization [facility] Address [address] [place] [address] Phone Care Team Providers Care Leaf Tier Name Role Phone Nael Rehman MD Unavailable Unavailable Advance Directives Directive Yes / No Effective Date File Name No Information Encounters Encounter Description Practice Location Reason(s) For Visit Diagnoses Date Provider Providers Copied on Encounter [facility], [address], [place], [place], [id number], [place] tel:[phone] [address] Professional No Information [address]ak. [address] [facility] [address], [place], [place], [id number], [place]. tel:[phone] Family History Family Member Type Diagnosis Age At Onset No Information Payers Payer name Insurance type Covered alliance party ID Authoriza tijc(s) [facility] Commercial CI [id number] Social History Type Description Quantity Date Captured Comments Sex Female Smoking Status No Information Chief Complaint And Reason For Visit No Information Reason For Referral Reason For Referral No Information History Of Present Illness Encounter Date Complaint History Of Prese nt Illness No Information Functional Status Date Functional Assessmen t No Information Instructions Date Instruction Additional Infor mation No Information Assessments Type Assessment Date No Information Patient Care Teams Name Effective Dates (start - stop) Status Members No Information
--- NOTE | ~2025-01-25 | DEXA_ITS ---
Bone Density Report Name: LACY TINEO Age: 79 Sex: Female Ethnicity: White Date of : 1945 Indication: postmenopausal; screening for osteoporosis; height loss; Referring Provider: UNKNOWN, UNKNOWN Study: Bone densitometry was performed. Exam Date: January 25, 2025 Accession number: [id number] Bone Density: Region BMD T-score Z-score Classification AP Spine(L1-L4) 1.103 0.5 3.1 Normal Femoral Neck (Left) 0.655 -1.7 0.4 Osteopenia Total Hip (Left) 0.873 -0.6 1.4 Normal Femoral Neck (Right) 0.637 -1.9 0.3 Osteopenia Total Hip (Right) 0.909 -0.3 1.7 Normal Femoral Neck Mean 0.646 -1.8 0.4 Osteopenia Total Hip Mean 0.891 -0.4 1.5 Normal World Health Organization criteria for BMD impression classify patients as: Normal (T-score at or above -1.0), Osteopenia (T-score between -1.0 and -2.5), or Osteoporosis (T-score at or below -2.5). 10-year Fracture Risk(1): Major Osteoporotic Fracture 12% Hip Fracture 3.0% Reported Risk Factors: [place] (), Neck BMD=0.637, BMI=37.1 (1) FRAX(R) Version 3.08. Fracture probability calculated for an untreated patient. Fracture probability may be lower if the patient has received treatment. Clinical Information Provided by Patient: Patient maximum height was 65 Menopause Age: 41 No regular weight bearing exercise Onset of menses at age 15 Number of children 2 Impression: The patient has low bone mass, based on the Right Femoral Neck T-score. Discussion: BONE DENSITY IS LOW AT ONE OR MORE SKELETAL SITES. This patient's lowest T-score is low at one or more skeletal sites. It meets the World Health Organization's (WHO) criteria for ?low bone mass? (T-score between -1.0 and -2.5). The patient's 10-year risk of fracture as calculated by FRAX is less than the threshold where pharmacological therapy is recommended by the National Osteoporosis Foundation (NOF). However, all treatment decisions require clinical judgment and consideration of individual patient factors, including patient preferences, comorbidities, previous drug use, risk factors not captured in the FRAX model (e.g., frailty, falls, vitamin D deficiency, increased bone turnover, interval significant decline in bone density) and possible under or overestimation of fracture risk by FRAX. The patient should follow a healthful lifestyle (good nutrition with adequate calcium and vitamin D, and appropriate weight-bearing exercise). Follow-Up: Consider repeating this study in 2 to 3 years to reassess this patient's status, or sooner if there is some new clinical indication. Reported by: NABEEL on 01/25/2025 2:44:00 PM. Reviewed, dictated and finalized at location A.
--- NOTE | ~2025-01-25 | MM_ITS ---
EXAMINATION: MM screening aleyda BI w tasha HISTORY: Screening TECHNIQUE: Craniocaudal and mediolateral oblique 3-D tomosynthesis images were obtained and synthetic 2-D images were generated. CAD analysis was submitted and interpreted. COMPARISON: Comparison to multiple prior studies sequentially, with oldest reviewed study dated 10/28/2017. BREAST PARENCHYMAL COMPOSITION: Not Dense: The breasts are almost entirely fatty. FINDINGS: There is no evidence of suspicious mass, calcification, or architectural distortion to suggest malignancy in either breast. There has been no suspicious interval change. IMPRESSION: 1. No mammographic evidence of malignancy. 2. Recommend routine screening mammography in one year. BI-RADS Category 1: Negative Reviewed, dictated and finalized at location B. MAN
--- OUTSIDE RECORDS SUMMARY | 2025-01-25 14:06 | XMS_ITS | Clinical Summary ---
Author Organization [facility] Address [address] [place] [address] Care Team Providers Care Linen Worker Name Role Phone Benson Downs Candace HOWARD Primary Care Provider [phone]- [phone] Allergies Active Allergy Reactions Criticality Noted Date [...] Benign essential HTN Controlled type 2 diabetes mellitus with hypergl ycemia 08/01/2013 Overview (02/17/2020): Diabetes mellitus DM2 (diabetes mellitus, type 2) Hypertension Resolved Problems Problem Noted Date Diagnosed Date Resolved Date Epigastric pain 07/20/2020 07/21/2020 Chest pain 07/19/2020 07/21/2020 Bacteremia due to Gram-negative bacteria 05/05/2020 05/09/2020 Respiratory failure with hypoxia 02/19/2020 02/19/2020 Family History Medical History Relation Comments Heart Disease Father Relation Status Comments Father Alive Mother old age Social History Tobacco Use Types Packs/Day Years Used Date Smoking Tobacco: Former Cigarettes 0.3 37 0 [birth year]/04/1965 - 05/04/2002 Smokeless Tobacco: Never Alcohol Use Standard Drinks/Week Comments Not Currently 0 (1 standard drink = 0.6 oz pur e alcohol) [facility] Utilities Answer Date Recorded In the past 12 months has e electric, gas, oil, or water [employer] threatened to shut off services in your [...] and heating? Not hard at all 09/19/2023 [facility] [place] of Occupat ional Health - Occupational Stress [...] any time in the past 12 m [facility], were you homeless or living in a correction (including now)? No 09/19/2023 Comments No Sex [...] 75+ series) 06/08/2022 COVID-19 Vaccine ( - 2024-2 6 season) 2024 Influenza Adult (#1) 2024 Hepatitis C Completed 07/19/2020 Dexa Scan (General) Completed 01/31/2023 Hepatitis A Vaccines Aged Out No long er eligible based on patient's age to complete this topic Meningococcal B Vaccine Aged Out No l [...] BONE DENSITY/DEXA Routine 01/31/2023 9:5 5 AM MINI BACCARAT DEALER Post-menopausal LIPID PANEL Routine 07/21/2020 6:38 AM CDT HEPATITIS PANEL,ACUTE STAT 07/19/2020 8:12 PM CDT HEMOGLOBIN, GLYCOSYLATED Routine 05/06/2020 5:20 AM MINI BACCARAT DEALER from Last 3 Months or Most Recently Relevant to Health Maintenance Results * BONE DENSITY/DEXA (01/31/2023 9:55 AM MINI BACCARAT DEALER) Anatomical Region Laterality Modality Bone Bone Density 01/31/2023 10:1 0 AM MINI BACCARAT DEALER Impressions 01/31/2023 10:19 AM MINI BACCARAT DEALER Impression: 1. Within normal limits in the lumbar spine. 2. Consistent with osteopenia in both hips. Ordered By: BENSON DOWNS Interpreted By: Lucas Barcenas MD, 01/31/2023 10:10 AM Narrative 01/31/2023 10:19 AM MINI BACCARAT DEALER Examination: DEXA Bone densitometry Clinical history: Postmenopausal. [...] bone mineral density test. [facility] routine testing is allowed once every 2 [...] 184 <200 MG/DL 07/21/2020 8:45 AM CDT [facility] Comment: THE NATIONAL LIPID ASSOCIATION AND THE NATIONAL CHOLESTEROL EDUCATION PROGRAM (NCEP) HAVE SET THE FOLLOWING GUIDELINES FOR TOTAL CHOLESTEROL IN ADULTS AGES 18 AND UP. DESIRABLE: <200 BORDERLINE HIGH: 200-239 HIGH: > OR = 240 TRIGLYCERIDES 61 <150 MG/DL 07/21/2020 8:45 AM CDT [facility] Comment: THE NATIONAL LIPID ASSOCIATION AND THE NATIONAL CHOLESTEROL EDUCATION PROGAM (NCEP) HAVE SET THE FOLLOWING GUIDELINES FOR TRIGLYCERIDES IN ADULTS AGES 18 AND UP. NORMAL: <150 BORDERLINE HIGH: 150 TO 199 HIGH: 200 TO 499 VERY HIGH: >499 HDL 62 >49 MG/DL 07/21/2020 8:45 AM CDT [facility] Comment: THE NATIONAL LIPID ASSOCIATION AND THE NATIONAL CHOLESTEROL EDUCATION PROGAM (NCEP) HAVE SET THE FOLLOWING GUIDELINES FOR HDL CHOLESTEROL IN ADULTS AGES 18 AND UP. MALES: >39 FEMALES: >49 LDL (CALCULATED) 110(H) <100 MG/DL 07/22/19 8:45 AM CDT [facility] Comment: THE NATIONAL LIPID ASSOCIATION AND THE NATIONAL CHOLESTEROL EDUCATION PROGAM (NCEP) HAVE SET THE FOLLOWING GUIDELINES FOR LDL CHOLESTEROL IN ADULTS AGES 18 AND UP. DESIRABLE: <100 ABOVE DESIRABLE: 100 TO 129 BORDERLINE HIGH: 130 TO 159 HIGH: 160 TO 189 VERY HIGH: >189 VLDL CALCULATION 12 MG/DL 05/06/20 21 8:45 AM CDT [facility] Comment:REFERENCE RANGE NOT ESTABLISHED CHOL/HDL RATIO 3.0 07/21/2020 8:45 AM CDT [facility] Comment:REFERENCE RANGE NOT ESTABLISHED LDL/HDL 1.8 07/21/2020 8:45 AM CDT [facility] Comment:REFERENCE RANGE NOT ESTABLISHED NON HDL CHOLESTEROL 122 MG/DL 07/21/2020 8:45 AM CDT [facility] Comment:REFERENCE RANGE NOT ESTABLISHED 07/21/2020 6:38 AM CDT Mariama Jones [facility] Final Res ult [facility] [address] [place] [address], * HEPATITIS PANEL,ACUTE (07/19/2020 8:12 PM CDT) HEPATITIS B SURFACE AG NON-REACT SHANKAR NON-REACT SHANKAR 07/20/2020 8:04 PM CDT [facility] Comment:HBsAg NOT DETECTED. HEP B CORE IGM NON-REACT SHANKAR NON-REACT SHANKAR 07/20/2020 8:04 PM CDT [facility] Comment: IgM ANTI HBc NOT DETECTED. DOES NOT EXCLUDE THE POSSIBILITY OF EXPOSURE TO OR INFECTION WITH HBV. NO RETEST REQUIRED. HIGH DOSES OF BIOTIN MAY INTERFERE WITH THIS TEST RESULT. CORRELATION TO CLINICAL HISTORY AND PRESENTATION RECOMMENDED. HAV IGM NON-REACT SHANKAR NON-REACT SHANKAR 07/20/2020 8:04 PM CDT [facility] Comment: IgM ANTI HAV NOT DETECTED. DOES NOT EXCLUDE THE POSSIBILITY OF EXPOSURE TO OR INFECTION WITH HAV. LEVELS OF IgM ANTI HAV MAY BE BELOW THE CUTOFF IN EARLY INFECTION. HEPATITIS C AB NON-REACT SHANKAR NON-REACT SHANKAR 07/20/2020 8:04 PM CDT [facility] Comment: ANTIBODIES TO HCV NOT DETECTED. DOES NOT EXCLUDE THE POSSIBILITY OF EXPOSURE TO HCV. 07/19/2020 8:12 PM CDT Eduardo San MD LABORATORY Final Resul t [facility] [address] [place] [address], [place] [phone] * (ABNORMAL) HEMOGLOBIN, GLYCATED (05/06/2020 5:20 AM MINI BACCARAT DEALER) HGB A1C 7.1(H) <5.7 % 05/06/2020 10:01 AM MINI BACCARAT DEALER [facility] Comment: 5.7 TO 6.4% INCREASED RISK OF DIABETES > OR = 6.5% CONSISTENT WITH DIABETES PER ADA GUIDELINES ESTIMATED AVG GLUCOSE 157(H) 70 - 140 MG/DL 05/06/2020 10:01 AM MINI BACCARAT DEALER [facility] 05/06/2020 5:20 AM MINI BACCARAT DEALER Eduardo HOWARD LABORATORY Final Result [facility] [address] [place] [address], [place] [phone] from Last 3 Months or Most Recently Relevant to Health Maintenance Insurance [facility] MEDICARE [facility] MEDICARE Advance Directives * Full Code (Latest [...] 7:59 PM 02/22/2020 2:05 PM Care Teams Linen Worker Relationship Specialty Start Date End Date Benson Downs APNP [address] [place], [place] [address] [place] [address] PCP - General Nurse Practitioner Family 01/31/23
--- OUTSIDE RECORDS SUMMARY | 2025-01-25 14:06 | XMS_ITS | Encounter Summary ---
Author Organization [facility] Address [address] [place] [address] Phone Care Team Providers Care Patent Litigation Associate Name Role Phone Katie Mendieta MD Primary Care Provider [phone] Galdino Gilmore MD Unavailable [phone] Isidro Murillo MD Unavailable [phone] Encounter Details Date Type Department Care Team (Late st Contact Info) Description 04/12/2017 Orders Only [facility] [address] [place] [address] Katie Mendieta MD [address] [place], [place] [id number] Social History Tobacco Use Types Packs/Day Years Used Date Smoking Tobacco: Former Smokeless Tobacco: Never Alcohol Use Standard Drinks/Week Comments No 0 (1 standard drink = 0.6 oz pur e alcohol) Comments No Sex and Gender Information Value Date Recorded Sex Assigned at Not on file Legal Sex Female 4:34 PM PROCESSING ASSOCIATE Gender Identity Not on file Sexual Orientation Not on file documented as of this encounter Plan of Treatment Not on file documented as of this encounter Procedures Procedure Name Priority Date/Time Associated Diagnosis Comments SCAN - LABS 04/12/2017 2:23 PM PROCESSING ASSOCIATE documented in this encounter Results * SCAN - LABS (04/12/2017 2:23 PM PROCESSING ASSOCIATE) us Katie Mendieta MD Final Resu lt documented in this encounter Visit Diagnoses Not on filedocumented in this encounter Care Teams Patent Litigation Associate Relationship Specialty Start Date End Date Katie Mendieta MD PCP - General 06/15/16 Galdino Gilmore MD Ophthalmology 11/02/16 Isidro Murillo MD [address] [place] [address] Orthopedic Surgery 11/02/16 documented as of this encounter
--- OUTSIDE RECORDS SUMMARY | 2025-01-25 14:06 | XMS_ITS | Encounter Summary ---
Author Organization [facility] Address [address] [place] [address] Phone Care Team Providers Care Soft Sugar Operator Head Name Role Phone Katie Mendieta MD Primary Care Provider [phone] Galdino Gilmore MD Unavailable [phone] Isidro Murillo MD Unavailable [phone] Encounter Details Date Type Department Care Team (Late st Contact Info) Description 10/18/2016 Orders Only [facility] [address] [place] [address] Katie Mendieta MD [address] [place] [address] Diabetic glomerulopathy (HCC) (Primary Dx); Routine general medical examination at a health care facility Social History Tobacco Use Types Packs/Day Years Used Date Smoking Tobacco: Never Assessed Comments Unknown Sex and Gender Information Value Date Recorded Sex Assigned at Not on file Legal Sex Female 4:34 PM BEHAVIORAL HEALTH CLINICIAN Gender Identity Not on file Sexual Orientation [...] facility documented in this encounter Care Teams Soft Sugar Operator Head Relationship Specialty Start Date End Date Katie Mendieta MD PCP - General 06/15/16 Galdino Gilmore MD Ophthalmology 11/02/16 Isidro Murillo MD [address] [place] [address] Orthopedic Surgery 11/02/16 documented as of this encounter
--- OUTSIDE RECORDS SUMMARY | 2025-01-25 14:06 | XMS_ITS | Clinical Summary ---
Author Organization [facility] [address] Address [address] [place] [address] Phone Care Team Providers Care Medical Technologist Chief Name Role Phone Katie Mendieta MD Primary Care Provider [phone]- [phone] Galdino Gilmore MD Unavailable [phone] Isidro Murillo MD Unavailable [phone] Allergies Active Allergy Reactions Criticality Noted Date Comments Cantaloupe Unknown 01/01/2017 Egg Glimepiride Itching Low Reaction: Itching, Milk [place] Juice Shellfish Containing Products Shellfish Derived Wheat [...] Hx Other Medical Cholecystectomy August 2012.; Comments: [facility] 11/01/2014 - Hx Other Medical Right knee A&A 9-1-15.; Comments: [facility] 11/24/2014 - Hx Other Medical Left knee A&A 1 0-6-15; Comments: [facility] 01/03/2015 - Hx Other Medical Right hand, tiffanie t and wrist fx. 2-8-16.; Comments: [facility] 07/06/2015 - Family History Medical History [...] on file Legal Sex Female 4:34 PM MASTER CONTROL OPERATOR Gender Identity Not on file Sexual Orientation [...] Not on file Insurance MEDICARE Care Teams Medical Technologist Chief Relationship Specialty Start Date End Date Katie Mendieta MD PCP - General 06/15/16 Galdino Gil[facility] MD Ophthalmology 11/02/16 Isidro Murillo MD [address] [place] [address] Orthopedic Surgery 11/02/16
--- OUTSIDE RECORDS SUMMARY | 2025-01-25 14:06 | XMS_ITS | Encounter Summary ---
Author Organization [facility] Address [address] [email or web address] [address] Phone Care Team Providers Care Advance Scout Name Role Phone Katie Mendieta MD Primary Care Provider [phone] Galdino Gilmore MD Unavailable [phone] Isidro Murillo MD Unavailable Encounter Details Date Type Department Care Team (Late st Contact Info) Description 04/19/2017 Orders Only [facility] [address] [place] [address] Katie Mendieta MD [address] [place], [place] [address] Social History Tobacco Use Types Packs/Day Years Used Date Smoking Tobacco: Former Smokeless Tobacco: Never Alcohol Use Standard Drinks/Week Comments No 0 (1 standard drink = 0.6 oz pur e alcohol) Comments No Sex and Gender Information Value Date Recorded Sex Assigned at Not on file Legal Sex Female 4:34 PM TRAIN ANNOUNCER Gender Identity Not on file Sexual Orientation Not on file documented as of this encounter Plan of Treatment Not on file documented as of this encounter Procedures Procedure Name Priority Date/Time Associated Diagnosis Comments SCAN - LABS 04/19/2017 8:16 AM TRAIN ANNOUNCER documented in this encounter Results * SCAN - LABS (04/19/2017 8:16 AM TRAIN ANNOUNCER) us Katie Mendieta MD Final Resu lt documented in this encounter Visit Diagnoses Not on filedocumented in this encounter Care Teams Advance Scout Relationship Specialty Start Date End Date Katie Mendieta MD PCP - General 06/15/16 Galdino Gilmore MD Ophthalmology 11/02/16 Isidro Murillo MD [address] [place] [address] Orthopedic Surgery 11/02/16 documented as of this encounter
--- OUTSIDE RECORDS SUMMARY | 2025-01-25 14:06 | XMS_ITS | Encounter Summary ---
Author Organization [facility] Address [address] [place] [address] Phone Care Team Providers Care Water Treatment Plant Operator Name Role Phone Katie Mendieta MD Primary Care Provider [phone] Galdino Gilmore MD Unavailable [phone] Isidro Murillo MD Unavailable Encounter Details Date Type Department Care Team (Late st Contact Info) Description 04/15/2017 Orders Only [facility] [address] [place] [address] Katie Mendieta MD [address] [place], [place] [address] Social History Tobacco Use Types Packs/Day Years Used Date Smoking Tobacco: Former Smokeless Tobacco: Never Alcohol Use Standard Drinks/Week Comments No 0 (1 standard drink = 0.6 oz pur e alcohol) Comments No Sex and Gender Information Value Date Recorded Sex Assigned at Not on file Legal Sex Female 4:34 PM UNIT REACTOR OPERATOR Gender Identity Not on file Sexual Orientation Not on file documented as of this encounter Plan of Treatment Not on file documented as of this encounter Procedures Procedure Name Priority Date/Time Associated Diagnosis Comments SCAN - LABS 04/15/2017 8:20 AM UNIT REACTOR OPERATOR documented in this encounter Results * SCAN - LABS (04/15/2017 8:20 AM UNIT REACTOR OPERATOR) us Katie Mendieta MD Final Resu lt documented in this encounter Visit Diagnoses Not on filedocumented in this encounter Care Teams Water Treatment Plant Operator Relationship Specialty Start Date End Date Katie Mendieta MD PCP - General 06/15/16 Galdino [facility] MD Ophthalmology 11/02/16 Isidro Murillo MD [address] [place] [address] Orthopedic Surgery 11/02/16 documented as of this encounter
--- OUTSIDE RECORDS SUMMARY | 2025-01-25 14:06 | XMS_ITS | Encounter Summary ---
Author Organization [facility] Address [address] [place] [address] Phone Care Team Providers Care Student Union Consultant Name Role Phone Katie Mendieta MD Primary Care Provider [phone] Galdino Gilmore MD Unavailable [phone] Isidro Murillo MD Unavailable Encounter Details Date Type Department Care Team (Late st Contact Info) Description 04/12/2017 Orders Only [facility] [address] [place] [address] Katie Mendieta MD [address] [place], [place] [id number] Social History Tobacco Use Types Packs/Day Years Used Date Smoking Tobacco: Former Smokeless Tobacco: Never Alcohol Use Standard Drinks/Week Comments No 0 (1 standard drink = 0.6 oz pur e alcohol) Comments No Sex and Gender Information Value Date Recorded Sex Assigned at Not on file Legal Sex Female 4:34 PM ORTHOPEDICALLY IMPAIRED TEACHER Gender Identity Not on file Sexual Orientation Not on file documented as of this encounter Plan of Treatment Not on file documented as of this encounter Procedures Procedure Name Priority Date/Time Associated Diagnosis Comments SCAN - RADIOLOGY/IMAGING 04/12/2017 2:23 PM ORTHOPEDICALLY IMPAIRED TEACHER documented in this encounter Results * SCAN - RADIOLOGY/IMAGING (04/12/2017 2:23 PM ORTHOPEDICALLY IMPAIRED TEACHER) Anatomical Region Laterality Modality Other us Katie Mendieta MD Final Resu lt documented in this encounter Visit Diagnoses Not on filedocumented in this encounter Care Teams Student Union Consultant Relationship Specialty Start Date End Date Katie Mendieta MD PCP - General 06/15/16 Galdino Gilmore MD Ophthalmology 11/02/16 Isidro Murillo MD [address] [address] Orthopedic Surgery 11/02/16 documented as of this encounter
--- OUTSIDE RECORDS SUMMARY | 2025-01-25 14:06 | XMS_ITS | Encounter Summary ---
Author Organization [facility] Address [address] [place] [address] Phone Care Team Providers Care Order Filler Name Role Phone Katie Mendieta MD Primary Care Provider [phone] Galdino Gilmore MD Unavailable [phone] Isidro Murillo MD Unavailable Encounter Details Date Type Department Care Team (Late st Contact Info) Description 04/15/2017 Orders Only [facility] [address] [place] [address] Katie Mendieta MD [address] [place], [place] [id number] Social History Tobacco Use Types Packs/Day Years Used Date Smoking Tobacco: Former Smokeless Tobacco: Never Alcohol Use Standard Drinks/Week Comments No 0 (1 standard drink = 0.6 oz pur e alcohol) Comments No Sex and Gender Information Value Date Recorded Sex Assigned at Not on file 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 Gender Identity Not on file Sexual Orientation Not on file documented as of this encounter Plan of Treatment Not on file documented as of this encounter Procedures Procedure Name Priority Date/Time Associated Diagnosis Comments SCAN - LABS 04/15/2017 11:47 AM 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
== END 2025-01-25 13:56 | disposition home or self-care (01) ==
DX: Z12.31 Encounter for screening mammogram for malignant neoplasm of breast (principal); Z78.0 Asymptomatic menopausal state; M85.89 Other specified disorders of bone density and structure, multiple sites
CPT/HCPCS: 77063; 77067; 77080